=== PATIENT | male | born 1995 ===

== ENCOUNTER → 2016-03-07 | Outpatient (CLI) | payer BC, OTHER | END | disposition home or self-care (01) | LOC: C.RDSM 03-07 13:31 | PROVIDERS: ATTEND Orthopaedic Surgery | DX: Z96.7 Presence of other bone and tendon implants (principal) ==

== ENCOUNTER → 2016-06-03 | Outpatient (CLI) | payer BC, OTHER ==
--- NOTE | 2016-06-03 11:19 | DIAGNOSTIC IMAGING REPORT ---
PELVIS MIN 3 VIEWS CLINICAL HISTORY: CLOSED LEFT ACETABULAR FX COMPARISON STUDY: 12/31/2015 FINDINGS: There is an internally fixated left acetabular fracture. There are no findings to indicate hardware fracture. No acute fractures are visualized. IMPRESSION: Postoperative findings of an internally fixated left acetabular fracture. No acute findings. The hardware appears intact. Electronically signed by: Rufino Villagomez M.D. 06/03/2016 11:17 AM Dictated Date/Time: 06/03/2016 11:16 AM
== END | disposition home or self-care (01) ==
LOC: C.RDSM 13:37
PROVIDERS: ATTEND Orthopaedic Surgery
DX: S32.422D Displaced fracture of posterior wall of left acetabulum, subsequent encounter for fracture with routine healing (principal); X58.XXXD Exposure to other specified factors, subsequent encounter

== ENCOUNTER → 2016-09-29 | Outpatient (CLI) | payer BC, OTHER ==
--- NOTE | 2016-09-29 19:50 | DIAGNOSTIC IMAGING REPORT ---
PELVIS MIN 3 VIEWS CLINICAL HISTORY: Left hip pain COMPARISON STUDY: 06/03/2016 FINDINGS: 3 views are provided for interpretation. There are postsurgical changes of an internally fixated acetabular fracture. No acute fractures are visualized. There is no conventional radiographic evidence of hardware failure. Mild irregularity symphysis pubis is likely chronic stress related basis. IMPRESSION: No change from the preceding study. No acute fractures. Old internally fixated left acetabular fracture Electronically signed by: Rufino Villagomez M.D. 09/29/2016 7:49 PM Dictated Date/Time: 09/29/2016 7:48 PM
== END | disposition home or self-care (01) ==
LOC: C.RAD 18:57
PROVIDERS: ATTEND Family Medicine
DX: M25.552 Pain in left hip (principal); Z98.890 Other specified postprocedural states

== ENCOUNTER → 2016-09-30 | Outpatient (CLI) | payer BC, OTHER ==
--- NOTE | 2016-09-30 13:00 | DIAGNOSTIC IMAGING REPORT ---
PELVIS NO IV/ORAL CONT (CT) CLINICAL HISTORY: 21 years-old Male presenting with LEFT HIP PAIN, PREVIOUS FX 1 YR AGO. TECHNIQUE: Multidetector CT of the pelvis was performed without the use of intravenous contrast. IV contrast: None. A dose lowering technique was used consistent with the principles of ALARA (as low as reasonably achievable). COMPARISON: Correlation made to plain radiograph of the pelvis from 09/29/2016. CT DOSE (mGy.cm): The estimated cumulative dose is 596.51 mGy.cm. 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 No hardware complication is apparent at the plate and screw fixation of the posterior wall of the left acetabulum. Hip joints congruent. Mild subchondral surface irregularity along the posterior superior left hip joint associated with the surgical hardware. Joint spaces preserved. No irregularity of the femoral heads. No acute fracture or malalignment. Irregularity of the pubic symphysis may relate to open physes. Sacroiliac joints normal. Lower lumbar spine normal. Intra-abdominal soft tissues normal. IMPRESSION: Plate screw fixation of the posterior wall of the left acetabulum. Mild subchondral surface irregularity along the posterior superior left hip joint associated with the surgical hardware. No abnormality of the left femoral head. Articular surface irregularity would be better demonstrated with MR of the head. Electronically signed by: Isreal Rios M.D. 09/30/2016 12:58 PM Dictated Date/Time: 09/30/2016 12:54 PM
== END | disposition home or self-care (01) ==
LOC: C.CTS 11:51
PROVIDERS: ATTEND Orthopaedic Surgery
DX: M25.552 Pain in left hip (principal)

== ENCOUNTER → 2017-01-27 | Outpatient (CLI) | payer BC, OTHER ==
--- NOTE | 2017-01-27 10:44 | DIAGNOSTIC IMAGING REPORT ---
L LOWER EXTREMITY WITH CLINICAL HISTORY: 21 years-old Male presenting with S32.422D. TECHNIQUE: Multidetector CT of the left hip was performed after the administration of intra-articular contrast. IV contrast: None. A dose lowering technique was used consistent with the principles of ALARA (as low as reasonably achievable). COMPARISON: 09/30/2016. CT DOSE (mGy.cm): The estimated cumulative dose is 206.63 mGy.cm. 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 Multiple cortical compression plate and screw fixation of the left posterior wall the pelvis. No hardware complication. No evidence of lucency surrounding the screws. The hardware approaches the posterior aspect of the acetabulum. Allowing for streak artifact, a screw head extends to the anterior cortical margin of the posterior wall/acetabulum immediately adjacent to the hip joint (series 3 image 102). This appearance is unchanged since the prior exam. Intra-articular contrast noted within the left hip joint. Normal appearance of the hip capsule. Minimal contrast noted outside of the joint capsule likely from injection technique. The hip labrum appears intact within limitations of CT. No focal linear contrast demonstrated within the labrum to suggest a tear. Previously noted cortical irregularity of the superior acetabulum (series 300 image 34) is stable to slightly decreased in prominence from prior exam. No apparent defect of the subjacent articular cartilage. Articular cartilage appears preserved allowing for regional streak artifact from the adjacent hardware. No fracture or subluxation. Regional soft tissues within normal limits. IMPRESSION: 1. Previously noted cortical irregularity of the superior aspect of the left acetabulum is stable to slightly decreased in prominence from prior exam. No apparent defect of the subjacent articular cartilage. 2. Stable appearance of plate and screw fixation of the posterior wall the left acetabulum. No hardware complication. 3. No gross evidence of a labral tear. If there is clinical concern for this diagnosis, MR would better demonstrate this. Electronically signed by: Isreal Rios M.D. 01/27/2017 10:43 AM Dictated Date/Time: 01/27/2017 10:27 AM
--- NOTE | 2017-01-27 11:04 | DIAGNOSTIC IMAGING REPORT ---
L ARTHROGRAM HIP CLINICAL HISTORY: 21 years-old Male presenting with S32.422D,S73.192A, left hip pain, history of fracture. COMPARISON: CT from 09/30/[address] subsequently performed the same day. PROCEDURE: The risks, benefits, and alternatives to the procedure were discussed with the patient. Written informed consent was obtained. The patient was placed supine on the fluoroscopy table, and a left hip injection was performed under fluoroscopic guidance. The area was prepped and draped in the usual sterile fashion. The skin and soft tissues anesthetized with local 1% lidocaine. The left hip joint was accessed utilizing a 22-gauge needle, and approximately 10 cc of a mixture of Optiray 300 was injected into the joint space under fluoroscopic guidance. There was normal distention of the capsule. The procedure was well tolerated without immediate complication. The patient was then transferred to MRI for MR arthrography. Fluoroscopy dosage (mGy): Not available. Fluoroscopy time: 0.4 minutes. Number of fluoroscopic spot images: 0. IMPRESSION: Successful injection of the left hip under fluoroscopic guidance. Electronically signed by: Isreal Rios M.D. 01/27/2017 11:03 AM Dictated Date/Time: 01/27/2017 11:00 AM
== END | disposition home or self-care (01) ==
LOC: C.RAD 09:04
PROVIDERS: ATTEND Family Medicine
DX: S32.422D Displaced fracture of posterior wall of left acetabulum, subsequent encounter for fracture with routine healing (principal); X58.XXXD Exposure to other specified factors, subsequent encounter; S73.192A Other sprain of left hip, initial encounter; X58.XXXA Exposure to other specified factors, initial encounter

== ENCOUNTER → 2017-02-09 | Outpatient (CLI) | payer BC, OTHER ==
--- NOTE | 2017-02-09 17:20 | DIAGNOSTIC IMAGING REPORT ---
CHEST 2 VIEWS ROUTINE HISTORY: COUGH COMPARISON: None. FINDINGS: The lungs are clear. Cardiac silhouette is normal in size. No pleural effusions. No pneumothorax. IMPRESSION: No acute process. Electronically signed by: Jun Bobo M.D. 02/09/2017 5:18 PM Dictated Date/Time: 02/09/2017 5:18 PM
== END | disposition home or self-care (01) ==
LOC: C.RAD 16:29
PROVIDERS: ATTEND Family Medicine
DX: R05 Cough (principal)